=== PATIENT | female | born 1960 | race Caucasian/White ===

== ENCOUNTER → 2023-07-25 14:34 | Outpatient (REF) | payer BC, SELFPAY | LOC: RCS 14:34 | PROVIDERS: ATTENDING PHYSICIAN Internal Medicine Cardiovascular Disease; FAMILY PHYSICIAN Family Medicine | DX: I51.7 Cardiomegaly (principal); R06.09 Other forms of dyspnea | CPT/HCPCS: 93017 ==

== ENCOUNTER → 2023-07-30 07:06 | Outpatient (REF) | payer BC, SELFPAY | LOC: HWRCS 07:06 | PROVIDERS: ATTENDING PHYSICIAN Internal Medicine Cardiovascular Disease; FAMILY PHYSICIAN Family Medicine | DX: I51.7 Cardiomegaly (principal); R06.09 Other forms of dyspnea | CPT/HCPCS: 93306 ==

== ENCOUNTER → 2023-12-17 10:15 | Outpatient (REF) | payer SELFPAY | LOC: HWRAD 10:15 | PROVIDERS: ATTENDING PHYSICIAN Internal Medicine Cardiovascular Disease; FAMILY PHYSICIAN Family Medicine | DX: E78.00 Pure hypercholesterolemia, unspecified (principal) | CPT/HCPCS: 75571 ==

== ENCOUNTER → 2024-03-12 12:12 | Outpatient (REF) | payer BC, SELFPAY | LOC: HWCARD 12:12 | PROVIDERS: ATTENDING PHYSICIAN Orthopaedic Surgery; FAMILY PHYSICIAN Family Medicine | DX: Z01.818 Encounter for other preprocedural examination (principal) | CPT/HCPCS: 93005 ==